=== PATIENT | female | born 1990 | race Caucasian/White ===

== ENCOUNTER 2017-12-06 06:25 | Day surgery (SDC) | payer OTHER ==
--- NOTE | 2017-11-26 10:48 | HP ---
Admitting History and Physical - Primary Care Physician PCP: Vicky Murdock - Admission Chief Complaint: right breast mass History of Present Illness: 27 yo female noted to have a right breast mass on self exam 6 mths ago. 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 Patient is opting to have a surgical excision. History Source: Patient Limitations to Obtaining History: No Limitations - Past Medical History ...LMP: 01/16/13 Additional Past Medical History: hospitalized in 2013 for complications sec to - Smoking History Smoking history: Never smoked Have you smoked in the past 12 months: No Aproximately how many cigarettes per day: 0 - Alcohol/Substance Use Hx Alcohol Use: No Home Medications - Allergies Allergies/Adverse Reactions: Allergies Allergy/AdvReac Type Severity Reaction Status Date / Time No Known Allergies Allergy Verified 01/25/16 19:55 - Home Medications Home Medications: Ambulatory Orders Ibuprofen [Motrin -] 600 mg PO TID #21 tablet 01/25/16 Ondansetron [Zofran *Odt*] 4 mg SL TID #30 od.tablet 01/25/16 Family Disease History - Family Disease History Other Family History: paternal cousin (leukemia). paternal sec cousin (breast cancer at 17) Review of Systems - Review of Systems Constitutional: reports: No Symptoms Breasts: reports: See HPI Physical Examination Constitutional: Yes: Well Nourished Breast(s): Yes: Other (Right 9 oclock 2.0 cm mobile mass. No other suspicious masses or adenopathy noted.) Problem List - Problems (1) Mass of right breast Code(s): N63.10 - UNSPECIFIED LUMP IN THE RIGHT BREAST, UNSPECIFIED QUADRANT Assessment/Plan right breast excisional biopsy
[2017-11-29 12:06] VITALS: BMI 22.3
[2017-12-06] MEDS ORDERED: LIDOCAINE HCL 1%, 10 MG/ML (20ML VIAL) ONE (07:19)
[2017-12-06] MEDS ORDERED: BUPIVACAINE HCL/PF 2.5 MG/ML - 30 ML VIAL IJ ONE (07:19)
[2017-12-06] MEDS ORDERED: PROPOFOL 20 ML ONE ×6 (07:31→09:18)
[2017-12-06] MEDS ORDERED: MIDAZOLAM HCL 2 MG/2 ML SINGLE DOSE VIAL ONE (07:31)
[2017-12-06] MEDS ORDERED: SUCCINYLCHOLINE CHLORIDE 200 MG/10 ML VIAL ONE (07:31)
[2017-12-06] MEDS ORDERED: ONDANSETRON 4 MG/2 ML VIAL ONE (08:14)
[2017-12-06] MEDS ORDERED: KETOROLAC TROMETHAMINE 30 MG/1 ML VIAL ONE (08:14)
[2017-12-06] MEDS ORDERED: ceFAZolin SODIUM 1 GM VIAL ONE (08:14)
[2017-12-06] MEDS ORDERED: DEXAMETHASONE SOD PHOSPHATE 4 MG/1 ML VIAL ONE (08:14)
[2017-12-06] MEDS ORDERED: THROMBIN (BOVINE) 5,000 UNIT VIAL TP ONE (09:35)
[2017-12-06] MEDS ORDERED: GELATIN, ABSORBABLE 100 EACH SPONGE TP ONE (09:35)
[2017-12-06] MEDS ORDERED: GUM MASTIC/STORAX/MSAL/ALCOHOL 1 DRP DROPSBTL MC ONE (09:53)
[2017-12-06] MEDS ORDERED: ONDANSETRON 4 MG/2 ML VIAL IVPUSH PRN ×2 (10:11→10:12)
[2017-12-06] MEDS ORDERED: PROMETHAZINE HCL 25 MG/1 ML VIAL IVPUSH PRN (10:11)
[2017-12-06] MEDS ORDERED: oxyCODONE HCL 5 MG TABLET PO PRN ×2 (10:11)
[2017-12-06] MEDS ORDERED: KETOROLAC TROMETHAMINE 30 MG/1 ML VIAL IVPUSH PRN (10:12)
[2017-12-06] MEDS ORDERED: DEXTROSE 5%-0.45% SALINE 1,000 ML IV SCH (10:15)
[2017-12-06] MEDS ORDERED: oxyCODONE HCL 5 MG TABLET ONE (11:07)
[2017-12-06 11:35] VITALS: TEMP 98
[2017-12-06 12:01] VITALS: BP 105/66; PULSE 61
--- NOTE | 2017-12-06 12:16 | OP ---
DATE OF OPERATION: 12/06/2017 PREOPERATIVE DIAGNOSIS: Right breast mass. POSTOPERATIVE DIAGNOSIS: Right breast mass. PROCEDURE: Excision of right breast mass. SURGEON: Brigida Murdock MD FINANCIAL DIRECTOR: PAM Weiss ANESTHESIA: MAC. ANESTHESIOLOGIST: Richard Fish MD SPECIMENS: Right breast mass and breast tissue. DRAINS: None. ESTIMATED BLOOD LOSS: 20 mL. INDICATION FOR PROCEDURE: The patient is a 27-year-old woman who felt a mass in the right breast. Ultrasound showed a mass consistent with a fibroadenoma. She elected to have the mass removed. The procedure and risks were discussed with her prior to surgery. DESCRIPTION OF PROCEDURE: The patient was identified in the holding area. Informed consent was obtained. The right breast was identified with a marker. She was taken to the operating room and placed on the operating table in a supine position. She was sedated. The right breast was prepped and draped in the usual fashion. A timeout was performed. The breast was examined and a palpable mass at 9 o' clock was easily identified. The skin around the lateral areola was infiltrated with 1% lidocaine. An incision with a scalpel was made at the lateral border of the areola. The incision was deepened using electrocautery. The mass was identified and tissue was divided using electrocautery until the mass was exposed. The mass was grasped with a clamp and seperated from the breast parenchyma. During the dissection an additional piece of tissue had been removed which was thought to contain the mass but was just dense breast tissue. Both specimens were placed in formalin and sent to Pathology. The wound was inspected and there was oozing in several areas. Some of the oozing was from the muscle. Bleeding was controlled with electrocautery. A small piece of Gelfoam with thrombin was placed at the deepest part of the wound. The incision was then closed. The deep tissue was reapproximated with interrupted sutures of 2-0 plain. The dermis was closed with interrupted sutures of 3-0 Vicryl, and the skin was closed with a running subcuticular closure of 4-0 Monocryl. The patient tolerated the procedure well. At the end of the procedure all sponge, lap, and instrument counts were correct. She was taken to the PACU in satisfactory condition. BRIGIDA MURDOCK M.D. [id number] MTDD
--- NOTE | 2017-12-12 12:34 | PATH ---
Surgical Pathology Report Patient Name: DAYANNA PAREKH [facility]. Rec. #: [id number] /Age/Gender: 1990 (Age: 27) / F Account: [id number] Location: [facility] Taken: 12/06/2017 Received: 12/06/2017 Reported: 12/12/2017 Physicians: Vicky Murdock M.D. 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 Electronically Signed Jelena Sampson M.D. Gross Description Received in formalin labeled "right breast tissue and right breast mass at 9:00," are 2 marques-yellow, irregular, unoriented portions of fibroadipose tissue measuring 2.4 x 2.0 x 1.5 cm and 3.2 x 2.5 x 1.3 cm. There are no needle localization wires present. There is no skin present. The smaller portion is inked blue and the larger portion of tissue is inked green. Sectioning reveals diffuse white fibrous tissue. The specimen is entirely and sequentially submitted in 11 cassettes as follows: 1-5-smaller portion of tissue; 6-11-larger portion of tissue. Total formalin fixation time: 26-34 hours 12/07/201712/07/2017
== END 2017-12-06 12:05 | disposition home or self-care (01) ==
LOC: FASU 06:25
PROVIDERS: ATTEND Surgery
PROC: 0HBT0ZX Excision of Right Breast, Open Approach, Diagnostic (ICD-10-PCS; principal; 2017-12-06 08:00)
DX: D24.1 Benign neoplasm of right breast (principal); N60.31 Fibrosclerosis of right breast; N63.10 Unspecified lump in the right breast, unspecified quadrant
CPT/HCPCS: 84703; 94760

== ENCOUNTER 2020-10-30 10:26 | Emergency (ER) | payer OTHER ==
[2020-10-30 10:53] VITALS: BMI 25.7
[2020-10-30 10:56] VITALS: TEMP 97.8
[2020-10-30 11:55] VITALS: BP 110/72; PULSE 72
[2020-10-30 12:11] LABS: BASO % 0.4 % (0-2.0); EOS % 0.3 % (0-4.5); HEMATOCRIT 43.7 % (32.4-45.2); HEMOGLOBIN 14.5 GM/dL (10.7-15.3); LYMPH % 26.4 % (8-40); MCH 29.7 pg (25.7-33.7); MCHC 33.3 g/dl (32.0-36.0); MEAN CELL VOLUME 89.4 fl (80-96); MONO % 8.2 % (3.8-10.2); NEUT % 64.7 % (42.8-82.8); PLATELET COUNT 234 K/MM3 (134-434); RBC 4.89 M/mm3 (3.60-5.2); RDW 13.8 % (11.6-15.6); WHITE BLOOD COUNT 5.7 K/mm3 (4.0-10.0)
[2020-10-30 12:24] LABS: PH,URINE 6.5 (5.0-8.0); URINE APPEARANCE CLEAR; URINE BILIRUBIN NEGATIVE (NEGATIVE); URINE COLOR YELLOW; URINE GLUCOSE (UA) NEGATIVE (NEGATIVE); URINE KETONE 1+ (NEGATIVE); URINE LEUK ESTERASE NEGATIVE (NEGATIVE); URINE NITRITE NEGATIVE (NEGATIVE); URINE PROTEIN NEGATIVE (NEGATIVE)
[2020-10-30 12:32] LABS: POTASSIUM 3.8 mmol/L (3.5-5.1)
[2020-10-30 12:33] LABS: CALCIUM 8.5 mg/dL (8.5-10.1)
[2020-10-30 12:34] LABS: BLOOD UREA NITROGEN 7.1 mg/dL (7-18)
[2020-10-30 12:37] LABS: CREATININE 0.7 mg/dL (0.55-1.3)
== END 2020-10-30 14:47 | disposition home or self-care (01) ==
LOC: JER 10:26
DX: O20.9 Hemorrhage in early pregnancy, unspecified (principal); Z3A.01 Less than 8 weeks gestation of pregnancy
CPT/HCPCS: 36415; 76817-TC; 80048; 81003; 84702; 85025; 86850; 86900; 86901; 87086; 87491; 87591; 99284-25